=== PATIENT | male | born 1995 | race African-American/Black ===

== ENCOUNTER 2019-05-08 16:35 | Emergency (ER) | payer BC ==
[~2019-05-08] VITALS: Ht 154.9 cm; Wt 43.4 kg
[~2019-05-08 16:35] MED LIST: FLEXERIL PO; FLOVENT HFA 1110 MCG INH; IBUPROFEN 200200 M1 PO; NORCO 5-325 TA1 EACH PO
[2019-05-08] MEDS ORDERED: TYLENOL325 MG PO (16:52)
[2019-05-08] MEDS ORDERED: LIORESAL 10 MG10 MG PO (17:35)
[2019-05-08] MEDS ORDERED: MOBIC7.5 MG PO (17:35)
[2019-05-08] MEDS ORDERED: SENNA-DOCUSATE1 EAC1 PO (17:35)
[2019-05-08] MEDS ORDERED: NORCO 5-325 TA1 EAC1 PO (17:35)
[2019-05-08 17:36] VITALS: BP 126/90
== END 2019-05-08 17:38 | disposition home or self-care (01) ==
LOC: ER 16:35
DX: M41.9 Scoliosis, unspecified (principal); J45.909 Unspecified asthma, uncomplicated; Z88.1 Allergy status to other antibiotic agents; Z88.0 Allergy status to penicillin

== ENCOUNTER 2019-05-10 12:40 | Inpatient (IN) | payer BC ==
[~2019-05-10] VITALS: Ht 188 cm; Wt 40.2 kg
[~2019-05-10 12:40] MED LIST changes: +LIORESAL 10 MG10 MG PO; +MOBIC7.5 MG PO; +NORCO 5-325 TA1 EAC1 PO; +SENNA-DOCUSATE1 EAC1 PO; +TYLENOL325 MG PO
[2019-05-10 13:04] LABS: ABSOLUTE NEUTROPHILS 7.8 thou/uL (1.4-8.2); BASOPHILS 0.3 % (0.0-2.0); EOSINOPHILS 0.3 % (0.0-3.0); HEMATOCRIT 45.8 % (42.0-52.0); HEMOGLOBIN 15.1 gm/dL (14.0-18.0); LYMPHOCYTES 13.5 % (24.0-44.0); MCH 30.2 pg (26.0-34.0); MCV 91.5 fL (80.0-100.0); MONOCYTES 2.1 % (1.0-8.0); PLATELET COUNT 274 thou/uL (150-400); POLYS 83.8 % (36.0-66.0); RBC 5.01 mil/uL (4.50-6.00); RDW 14.3 % (10.5-14.5); WBC 9.3 thou/uL (4.0-11.0)
[2019-05-10 13:14] LABS: CREATININE 0.5 mg/dL (0.7-1.3)
[2019-05-10 13:15] LABS: POTASSIUM 4.4 mmol/L (3.5-5.1)
[2019-05-10 13:20] LABS: ALBUMIN 4.5 g/dL (3.4-5.0); TOTAL BILIRUBIN 0.6 mg/dL (<0.1-1.0); TOTAL PROTEIN 7.8 g/dL (6.4-8.2)
[2019-05-10 16:13] VITALS: BP 123/87
[2019-05-10 17:30] VITALS: BP 110/55
--- NOTE | 2019-05-10 18:26 | NUR ---
PATIENT ARRIVED TO UNIT THIS EVENING FROM ED. HE EXPRESSED HE IS HURTING. PHYSICIAN CALLED FOR PAIN MEDICATIONS. DR. MCCANN EXPRESSED WANTS TO LIMIT NARCOTIC USE SECONDARY TO CONSTIPATION AND COLITIS ISSUES. HOWEVER, PAIN MEDICATION ORDER RECEIVED. ADMISSION ASSESSMENT AND HISTORY OBTAINED. NURSE TO CONTINUE TO MONITOR PATIENT STATUS.
[2019-05-10 19:53] VITALS: BP 101/41
[2019-05-11 00:11] VITALS: BP 84/41
--- NOTE | 2019-05-11 03:11 | NUR ---
ASSUMED CARE OF PATIENT AT 1900. VSS, AFEBRILE. EXTREMELY NAUSEAUS AT SHIFT CHANGE, MORPHINE AND NAUSEA MEDICINE GIVEN. PATIENT ABLE TO REST THROUGH THE NIGHT. DENIES ANY PAIN OR NAUSEA WHEN WOKEN UP. MOM AT BEDSIDE, ABLE TO DO MED RECONCILIATION. VERIFIED ALLERGIES. IV FLUIDS INFUSING. POC GOALS ESTABLISHED. WILL CONTINUE TO MONITOR.
[2019-05-11 04:21] VITALS: BP 105/49
[2019-05-11 05:56] LABS: HEMATOCRIT 40.1 % (42.0-52.0); MCH 29.7 pg (26.0-34.0); MCHC 31.8 g/dL (28.0-37.0); MCV 93.3 fL (80.0-100.0); RBC 4.3 mil/uL (4.50-6.00); RDW 14.6 % (10.5-14.5); WBC 7.3 thou/uL (4.0-11.0)
[2019-05-11 06:00] LABS: HEMOGLOBIN 12.8 gm/dL (14.0-18.0)
[2019-05-11 06:12] LABS: CALCIUM 8.3 mg/dL (8.5-10.1); CREATININE 0.5 mg/dL (0.7-1.3); MAGNESIUM 1.9 mg/dL (1.8-2.4); PHOSPHORUS 3.9 mg/dL (2.5-4.9)
[2019-05-11 06:19] LABS: POTASSIUM 3.4 mmol/L (3.5-5.1)
[2019-05-11 08:05] VITALS: BP 99/54
--- NOTE | 2019-05-11 10:15 | NUR ---
ASSESSMENT: CM REVIEWED CHART AND MET WITH PATIENT AT THE BEDSIDE. PT CALLED HIS MOTHER SOULEYMANE AND SHE WAS ON SPEAK PHONE DURING ASSESSMENT. PT WAS ADMITTED WITH ABDONIMAL PAIN/COLITIS. PT REPORTS LIVING IN A HOUSE WITH HIS MOTHER. PT HAS NO STEPS TO ENTER AND NO STEPS ONCE INSIDE. PT HAS HX OF ARTROGRYPOSIS AND SCOLIOSIS AND IS WHEELCHAIR BOUND. PT USES WHEELCHAIR AT HOME AND IS FAIRLY INDEPENDENT BUT NEEDS HELP WITH TRANSFER FROM BED TO WHEELCHAIR WHICH FAMILY ASSIST WITH. PT HAS NOT HAD HH IN THE PAST OR BEEN TO A SNF HE STATES. CM DISCUSSED ROLE. PT ANTICIPATES GOING HOME AT DISCHARGE. CM WILL CONTINUE TO FOLLOW TO ASSIST NEEDED.
[2019-05-11 16:03] VITALS: BP 114/56
[2019-05-11 16:04] LABS: URINE BLOOD NEGATIVE (Negative); URINE CLARITY CLEAR; URINE GLUCOSE-RANDOM* TRACE (Negative); URINE KETONES 2+ (Negative); URINE LEUKOCYTES-REFLEX TRACE (Negative); URINE PROTEIN (DIPSTICK) NEGATIVE (Negative); URINE SPECIFIC GRAVITY >= 1.030 (1.005-1.035); URINE UROBILINOGEN 0.2 E.U./dl (0.2-1.0)
[2019-05-11 16:08] LABS: ICTOTEST (BILI CONFIRMATORY) Negative (Negative); URINE BILIRUBIN NEGATIVE (Negative); URINE COLOR DARK YELLOW; URINE NITRITE-REFLEX POSITIVE (Negative)
[2019-05-11 16:15] LABS: BACTERIA-REFLEX 1-9 Few /HPF (None Seen); CASTS None Seen /LPF (None Seen); CRYSTALS None Seen /LPF (None Seen); MUCUS >6 Heavy strn/LPF (None Seen); SQUAMOUS 0-3 Few /LPF (0-3); URINE RBC None Seen /HPF (0-2); URINE WBC-REFLEX 0-5 Rare /HPF (0-5)
[2019-05-11 19:28] VITALS: BP 124/74
[2019-05-12 04:16] VITALS: BP 106/60
[2019-05-12 05:57] LABS: HEMATOCRIT 40.5 % (42.0-52.0); MCH 30.2 pg (26.0-34.0); MCHC 32.2 g/dL (28.0-37.0); MCV 93.8 fL (80.0-100.0); RBC 4.31 mil/uL (4.50-6.00); RDW 14.5 % (10.5-14.5); WBC 4.4 thou/uL (4.0-11.0)
[2019-05-12 06:18] LABS: CALCIUM 8.6 mg/dL (8.5-10.1); CREATININE 0.5 mg/dL (0.7-1.3); MAGNESIUM 1.6 mg/dL (1.8-2.4); PHOSPHORUS 3.2 mg/dL (2.5-4.9)
[2019-05-12 07:37] VITALS: BP 109/53
--- NOTE | 2019-05-12 08:27 | NUR ---
PATIENTS IS ALERT AND ORIENTED. PATIENT IS SBA TO BSC. PATIENT IS ON ROOM AIR. PATIENTS PAIN IS CONTROLLED WITH PAIN MEDICATION. PATIENTS NAUSEA IS CONTROLLED WITH MEDICATIONS. PATIENT IS ON CLEAR LIQUIDS FOR BOWEL REST. PATIENT IS NSR ON TELE. PATIENTS LBM WAS THE 2ND. PATIENT IS RESTING COMFORTABLY IN BED WCM. PATIENT IS PROGRESSING TO GOALS.
--- NOTE | 2019-05-12 13:51 | NUR ---
ON-GOING ASSESSMENT: CM REVIEWED CHART AND SPOKE WITH ATTENDING. PT IS POSSIBLE DISCHARGE THIS WEEKEND IF HE CONTINUES TO IMPROVE. CM MET WITH PATIENT AT THE BEDSIDE AND ASKED IF HE FELT HE NEEDED HH WIH PATIENT DECLINED. CM ALSO ATTEMPTED TO REACH OUT TO PTS MOTHER ARTHUR [phone] TO VERIFY IF SHE WANTED HH ALTHOUGH SHE DECLINED YESTERDAY. PLANS ARE FOR PATIENT TO DISCHARGE HOME WITH NO NEEDS. CM WILL CONTINUE TO FOLLOW TO ASSIST NEEDED.
[2019-05-12 15:04] VITALS: BP 105/56
--- NOTE | 2019-05-12 15:40 | NUR ---
Assumed care approx. 0700 this AM. GI docs and Dr. Chávez at bedside this AM stating the plan is hopefully for discharge tomorrow. Patient given morphine IV for pain of 8 on pain scale. Diet advanced to regular per GI. Miralax started this AM per GI request per constipation. Less nausea noted than previously. Patient appears to be improving toward plan of care.
[2019-05-12 19:14] VITALS: BP 111/61
--- NOTE | 2019-05-13 02:50 | NUR ---
patient is alert and oriented. patient is nsr on tele. patients lbm was the 2nd. patient is a paraplegic. patient is very indepentent. patient is room air. paitent uses urinal. patients pain is controlled with pain medication. patient is resting comofortably in bed. wcm. patient is progressing to goals.
[2019-05-13 04:00] LABS: HEMATOCRIT 41.2 % (42.0-52.0); HEMOGLOBIN 13.3 gm/dL (14.0-18.0); MCH 30.1 pg (26.0-34.0); MCHC 32.2 g/dL (28.0-37.0); MCV 93.3 fL (80.0-100.0); RBC 4.42 mil/uL (4.50-6.00); RDW 14.1 % (10.5-14.5); WBC 4.6 thou/uL (4.0-11.0)
[2019-05-13 04:23] LABS: CALCIUM 8.6 mg/dL (8.5-10.1); CREATININE 0.6 mg/dL (0.7-1.3); MAGNESIUM 1.9 mg/dL (1.8-2.4); PHOSPHORUS 3.2 mg/dL (2.5-4.9); POTASSIUM 3.9 mmol/L (3.5-5.1)
[2019-05-13 05:06] VITALS: BP 97/49
[2019-05-13 07:20] VITALS: BP 103/52
[2019-05-13] MEDS ORDERED: ZOFRAN ODT4 MG DISSOLVE (09:33)
--- NOTE | 2019-05-13 09:50 | NUR ---
0730-Pt was asleep when this nurse tried to assess this morning. Mom was at bedside. Pt alert, oriented x 4 when he was awake. Afebrile. Followed commands appropriately. LS clear. No edema. BS + on all quardrants. Has been using urinal and BSC. IFV is running. Will continue to monitor.
[2019-05-13 15:18] VITALS: BP 107/53
[2019-05-13 17:22] VITALS: BP 107/53
--- NOTE | 2019-05-13 17:48 | NUR ---
Discharge notes Pt is discharged as GI team recommended DC as far as pt ate w/o nausea. VSS. Pt ate dinner 90% w/o nausea. Discharge instructions (diet, activity, F/U, medications, and S/S to call) were reviewed w/ pt and mother. Pt and the mother verbalized understanding. This nurse tried to give flu shot but pt already received the flu shot on 05/11/19. Pt showed the card of evidence to this nurse. Pt's belongings were w/ pt. IV was discontinued by the assistant finance director. Pt was taken out to [facility] where the mother parked car via W/C by the assistant finance director.
--- NOTE | 2019-06-06 10:12 | H ---
[facility] [place] [address] HISTORY AND PHYSICAL Name: ULISES NEWBERRY Room #: 356-P [facility] IN M.R.#: [id number] Admission: 05/10/19 Attend Phys: Georgie Slater MD Discharge: 05/13/19 Date of : 89 Report #: [id number] THIS REPORT FOR: //name// CC: FAM unknown Georgie Slater NO PCP DATE OF SERVICE: 05/10/2019 PRIMARY CARE PHYSICIAN: Dr. Gita Morse. CHIEF COMPLAINT: 1. Nausea started at 6:00 this morning. 2. Intractable vomiting since then. HISTORY OF PRESENT ILLNESS: The patient is a very pleasant 24-year-old gentleman, who is wheelchair bound secondary to his arthrogryposis and scoliosis and lordosis with multiple-multiple spinal surgeries for his arthrogryposis, scoliosis, and lordosis, all at [facility]. The patient is wheelchair bound, but has significant upper extremity strength and upper shoulder girdle strength and he is pretty much independent for his activities of daily living except he needs help for transfer from the bed to the wheelchair because of weakness of both lower extremities muscles and atrophy of both lower extremities muscles. The patient has had these intermittent episodes of nausea and vomiting since his spinal surgery, but last hospitalization was more than a year ago as his mother recalls. The patient has been feeling cold and hot since 6:00 this morning when this nausea and vomiting started and abdominal pain started. The patient points to the whole abdomen as a generalized abdominal pain and denies any hematemesis or hematochezia or melena associated with it. He has had 3 bowel movements since this morning 6:00 and there has been his normal bowel movement, no diarrhea or hard stool noted by his mother. The patient has not had any change in his dietary habits and no one else in the family has had any GI illness. The patient's last meal was at 8:00 last night and they went to bed, feeling fine; however, in the morning woke up with severe nausea and vomiting. The patient also has intermittent rectal prolapse for last several years and usually rectal prolapse is reversible and the patient usually pushes the rectal vault back in the pelvic cavity. The patient has not had any hematochezia or melena. The patient's mother is the main person who is a primary dictating machine typist and she and the patient gave the history together. The patient denies any dysuria or back pain or any colicky component to his abdominal pain. Denies any associated chest pain or shortness of breath; however, his mother had noticed some cough with sputum production in last 2-3 days, but the patient has not had any pleuritic chest pain or hemoptysis and the sputum has been minimal and clear in color as per the patient. Denies any dyspnea or chest pressure. Denies any sinus drainage. Review of systems is also negative for any headache, dizziness, lightheadedness. [address] [address] HISTORY AND PHYSICAL Name: ULISES NEWBERRY Room #: 356-P [facility] M.R.#: [id number] Admission: 05/10/19 Attend Phys: Georgie Slater MD Discharge: 05/13/19 Date of : 89 Report #: [id number] PAST MEDICAL HISTORY: Significant for: 1. Arthrogryposis. 2. Lordosis. 3. Scoliosis. 4. Significant atrophy of the pelvic muscles and lower extremity muscles. 5. Wheelchair bound status. ALLERGIES: THE PATIENT IS ALLERGIC TO PENICILLIN, WHICH CAUSES SHORTNESS OF BREATH WELL HIVES. PAST SURGICAL HISTORY: 1. The patient has had orthopedic surgery on his back or spinal cord repair for arthrogryposis. 2. Bilateral hip surgery. 3. Bilateral knee surgery. 4. Clubbed feet surgery. All surgeries were done at [facility]. CURRENT MEDICATIONS: None. Up until last admission in the Emergency Room for back pain recently and the patient received 3 prescriptions, hydrocodone, muscle relaxant, and Senokot. FAMILY HISTORY: Mother has had cholecystectomy secondary to gallstones and also has hypertension, but otherwise healthy. Father has asthma, otherwise healthy. PERSONAL AND SOCIAL HISTORY: The patient denies any tobacco and occasionally takes alcohol and on his birthday on 05/03/2017, he had 1 alcoholic beverage and usually takes it once a year after he had turned 23. REVIEW OF SYSTEMS: Ten point review of systems as above. PHYSICAL EXAMINATION: VITAL SIGNS: Temperature 36.8, heart rate 63, respirations 20, blood pressure 128/80, pulse oximeter 99% on room air. GENERAL: Alert and oriented to time, place and person, very pleasant 24-year-old gentleman, who is able to sit up by himself and turns from prone position to supine position and is in no acute distress until he is asked to sit up but when he starts having nausea and vomiting again. No acute cardiopulmonary distress. HEENT: Normocephalic, atraumatic. Pupils equally round, reactive to light. Oropharynx clear. Mucous membranes moist. NECK: Supple. No JVD. No lymphadenopathy. HEART: S1, S2 regular. No murmur, no S3, no S4. No tachycardia. LUNGS: Clear to auscultation bilaterally without any crackles or wheezes and the patient has bilaterally symmetrical chest expansion present. The patient does have significant scoliosis with a deformity of the chest noted. [facility] [address] [place] [address] HISTORY AND PHYSICAL Name: ULISES NEWBERRY Room #: 356-P [facility] M.R.#: [id number] Admission: 05/10/19 Attend Phys: Georgie Slater MD Discharge: 05/13/19 Date of : 89 Report #: [id number] ABDOMEN: The patient has a soft, mild discomfort, generalized to all four quadrants of abdomen, normal active bowel sounds; however, no rigidity or rebound noted. No organomegaly noted. EXTREMITIES: Both upper extremities with normal range of motion and normal muscle mass, but the lower extremities, significant atrophy of both lower extremities with flexion at hip as well as flexion at the knee. NEUROLOGIC: Nonfocal except lower extremity muscle atrophy noted suggesting both lower extremities paresis. LABORATORY DATA: The patient had CBC with normal WBC count 9.3, hemoglobin 15.1, hematocrit 45.8, platelet count 274 and the differential is significant for elevated segmented neutrophil of 83.8%. No bandemia noted. Next, chemistries indicate sodium 139, potassium 4.4, chloride 103, bicarbonate 26, anion gap 10, BUN 18, creatinine 0.5. Estimated GFR 252, glucose 110, calcium 10, total bilirubin 0.6, AST 28, ALT 24, alkaline phosphatase 92, total protein 7.8, albumin 4.5 and lipase is normal at 100. RADIOLOGICAL STUDIES: The patient had radiological studies done. 1. CT scan of the abdomen and pelvis indicates extensive surgical metal and marked scoliosis throughout the thoracolumbar spine. The distal colon and rectum demonstrate marked thickening, possible normal appendix seen with tubular gas filled structure, but this is not definitive, moderate stool is noted in the colon with some prominent wall thickening in the distal colon and rectum. Liver, kidneys, gallbladder, pancreas, adrenal glands unremarkable. 2. Lower extremity muscle atrophy is noted, suggesting paralysis. 3. Subcutaneous edema diffusely over the upper leg and adjacent lung area with minor red scarring and atelectasis and no free intraperitoneal air. Mild bladder wall thickening suggesting chronic cystitis. Interestingly, the patient also had CT of the L-spine and C-spine done as the patient has had one visit prior to this visit for back pain and so CT scans of both upper and lower lumbar and thoracic spine indicates extensive scoliosis with extensive surgical fusion and no loosening or infection or definite acute bony process noted in CT of the L and T-spine. 4. Chest x-ray portable shows no acute process and extensive scoliosis with surgical metal noted. ASSESSMENT: 1. Abdominal pain with intractable nausea and vomiting. 2. Constipation. 3. Possible colitis. 4. Nonsteroidal anti-inflammatory use for last 1 week. PLAN: We will go ahead and start the patient on antibiotics since he has had SHORTNESS OF BREATH WITH HIVES AND SIGNIFICANT RESPIRATORY DISTRESS WITH PENICILLIN AND AMOXICILLIN. I would go ahead and use aztreonam instead of ceftriaxone as Rocephin has cross reactivity with penicillin in 10% of cases and [address] [place] [address] HISTORY AND PHYSICAL Name: ULISES NEWBERRY Room #: 356-P [facility] M.R.#: [id number] Admission: 05/10/19 Attend Phys: Georgie Slater MD Discharge: 05/13/19 Date of : 89 Report #: [id number] so we will use 1 g aztreonam q. 8 hours along with Flagyl for gram-positive and gram-negative coverage. If the patient has diarrhea, then we will send stool for Gram stain, culture and sensitivity at this time; however, the CT scan is consistent with more constipation and the patient has not had any history of diarrhea and so we would go ahead and just use empiric antibiotic for intra-abdominal infection and will use Zofran IV q.4 hour p.r.n. for infection. The patient informs me that he is able to tolerate rectal suppositories for Phenergan because nausea is so severe; however, with the rectal prolapse, I am not so sure if we can use rectal route at this point in time until surgery evaluation is done. General Surgery has been consulted because of the question of appendicitis as the radiologist was unable to see appendix very clearly and there could be some gas in the tubular structure, which is likely appendix as per the initial read for the CT scan, so we will wait for the surgery evaluation and we will keep the patient n.p.o., will start D5 NS at 100 mL an hour. Once the fluid replacement has been done with normal saline, this patient has been having intractable nausea and vomiting, so we will start with normal saline at this time. Once the nausea subsides, then we will consider giving lactulose for constipation. Once cleared by Surgery, for GI prophylaxis we will use Pepcid and for DVT prophylaxis we will use Lovenox. Plan of care was discussed with the patient as well as his mother, who was sitting at the bedside and she is also an emergency contact for the patient. The patient is full code. <ELECTRONICALLY SIGNED> By: Georgie Slater MD 06/06/19 [id number] Georgie Slater MD /nt
== END 2019-05-13 17:48 | disposition home or self-care (01) | DRG 392 ==
LOC: ER 12:40 → 3W 15:20 → EROBS 15:20 → 3W 17:18
PROVIDERS: Physician Assistant; ADMIT Internal Medicine
DX: K52.9 Noninfective gastroenteritis and colitis, unspecified (principal); E86.0 Dehydration; E87.6 Hypokalemia; M41.9 Scoliosis, unspecified; K59.00 Constipation, unspecified; Z88.1 Allergy status to other antibiotic agents; Z88.0 Allergy status to penicillin; Z23 Encounter for immunization; Q68.8 Other specified congenital musculoskeletal deformities; Z79.1 Long term (current) use of non-steroidal anti-inflammatories (NSAID); Z79.899 Other long term (current) drug therapy
CPT/HCPCS: 10879